=== PATIENT | male | born 1945 | race Caucasian/White ===

== ENCOUNTER 2017-12-01 11:56 | Emergency (ER) | payer MEDICARE, MEDICAID ==
[~2017-12-01] VITALS: Ht 172.7 cm; Wt 66.5 kg
[~2017-12-01 11:56] MED LIST: ASPI-1265 PO; ATOR10TA87 PO; COU1T PO; HYDR-3972 PO; LOPE-144 PO; MECL-111 PO; MECL12.5 PO; NITR0.4T SL; ONDA4TAB12 PO; TOP100T PO
[2017-12-01 12:47] LABS: BASOPHILS % (AUTO) 0.5 % (0-1); EOSINOPHILS # (AUTO) 0.1 X10'3 (0-0.9); EOSINOPHILS % (AUTO) 1.2 % (0-6); HEMATOCRIT 42.1 % (42.0-52.0); HEMOGLOBIN 14.3 g/dl (14.0-17.9); LYMPHOCYTES # (AUTO) 2.2 X10'3 (1.1-4.8); LYMPHOCYTES % (AUTO) 33.9 % (21-51); MEAN CORPUSCULAR HEMOGLOBIN 30.8 PG (27.0-31.0); MEAN CORPUSCULAR VOLUME 90.4 FL (78-98); MEAN PLATELET VOLUME 8.4 FL (7.4-10.4); MONOCYTES # (AUTO) 0.5 X10'3 (0-0.9); MONOCYTES % (AUTO) 8.2 % (2-12); NEUTROPHILS # (AUTO) 3.6 X10'3 (1.8-7.7); NEUTROPHILS % (AUTO) 56.2 % (42-75); PLATELET COUNT 218 X10'3 (140-440); RED BLOOD COUNT 4.65 X10'6 (4.70-6.10); WHITE BLOOD COUNT 6.3 X10'3 (4.5-11.0)
[2017-12-01 12:57] LABS: PARTIAL THROMBOPLASTIN TIME 27 SECONDS (22-32); PROTHROMBIN TIME 10.3 SECONDS (9.0-12.0)
[2017-12-01 13:11] LABS: ALANINE AMINOTRANSFERASE 19 U/L (12-78); ALBUMIN 3.5 G/DL (3.4-5.0); ALBUMIN/GLOBULIN RATIO 1.1 (1.1-1.5); ALKALINE PHOSPHATASE 75 IU/L (46-116); ANION GAP 11 (8-16); ASPARTATE AMINO TRANSFERASE 15 U/L (10-37); BILIRUBIN,TOTAL 0.3 MG/DL (0.1-1.0); BLOOD UREA NITROGEN 11 MG/DL (7-18); BUN/CREATININE RATIO 11.2 (5.4-32.0); CALCIUM 8.1 MG/DL (8.5-10.1); CHLORIDE 108 MMOL/L (99-107); CREATININE 0.98 MG/DL (0.60-1.10); GLUCOSE 98 MG/DL (70-104); POTASSIUM 3.7 MMOL/L (3.5-5.1); SODIUM 138 MMOL/L (135-145); TOTAL CARBON DIOXIDE 18.6 MMOL/L (24-32); TOTAL PROTEIN 6.8 G/DL (6.4-8.2); eGFR 75 ML/MIN
[2017-12-01 14:04] VITALS: BP 130/84
== END 2017-12-01 14:06 | disposition home or self-care (01) ==
LOC: ER 11:57
DX: R42 Dizziness and giddiness (principal); I48.91 Unspecified atrial fibrillation; I25.10 Atherosclerotic heart disease of native coronary artery without angina pectoris; E78.00 Pure hypercholesterolemia, unspecified; I25.2 Old myocardial infarction; G89.29 Other chronic pain; Z98.890 Other specified postprocedural states; Z79.82 Long term (current) use of aspirin; Z79.01 Long term (current) use of anticoagulants; Z79.899 Other long term (current) drug therapy; Z88.8 Allergy status to other drugs, medicaments and biological substances
CPT/HCPCS: 36415; 70450; 71045; 80053; 85025; 85610; 85730; 93005; 99285; J7030

== ENCOUNTER 2018-01-05 06:06 | Emergency (ER) | payer MEDICARE, MEDICAID ==
[~2018-01-05] VITALS: Ht 172.7 cm; Wt 72.7 kg
[2018-01-05 06:47] LABS: BASOPHILS % (AUTO) 0.7 % (0-1); EOSINOPHILS # (AUTO) 0.1 X10'3 (0-0.9); EOSINOPHILS % (AUTO) 2.2 % (0-6); HEMATOCRIT 43.3 % (42.0-52.0); HEMOGLOBIN 14.4 g/dl (14.0-17.9); LYMPHOCYTES % (AUTO) 42.7 % (21-51); MEAN CORPUSCULAR HEMOGLOBIN 30.5 PG (27.0-31.0); MEAN CORPUSCULAR HGB CONC 33.2 % (33.0-36.5); MEAN CORPUSCULAR VOLUME 91.9 FL (78-98); MEAN PLATELET VOLUME 8.8 FL (7.4-10.4); MONOCYTES # (AUTO) 0.4 X10'3 (0-0.9); MONOCYTES % (AUTO) 8.8 % (2-12); NEUTROPHILS # (AUTO) 2.1 X10'3 (1.8-7.7); NEUTROPHILS % (AUTO) 45.6 % (42-75); PLATELET COUNT 202 X10'3 (140-440); RED BLOOD COUNT 4.71 X10'6 (4.70-6.10); RED CELL DISTRIBUTION WIDTH 12.9 % (11.5-14.5); WHITE BLOOD COUNT 4.6 X10'3 (4.5-11.0)
[2018-01-05 06:55] LABS: PROTHROMBIN TIME 10.4 SECONDS (9.0-12.0)
[2018-01-05 07:00] LABS: ALBUMIN 3.4 G/DL (3.4-5.0); ANION GAP 14 (8-16); BILIRUBIN,TOTAL 0.4 MG/DL (0.1-1.0); BLOOD UREA NITROGEN 11 MG/DL (7-18); CALCIUM 8.4 MG/DL (8.5-10.1); CHLORIDE 108 MMOL/L (99-107); CREATININE 0.92 MG/DL (0.60-1.10); GLUCOSE 106 MG/DL (70-104); POTASSIUM 3.7 MMOL/L (3.5-5.1); SODIUM 139 MMOL/L (135-145); TOTAL CARBON DIOXIDE 17.5 MMOL/L (24-32); TOTAL PROTEIN 6.5 G/DL (6.4-8.2); eGFR 80 ML/MIN
[2018-01-05 07:01] LABS: ALANINE AMINOTRANSFERASE 22 U/L (12-78); ALBUMIN/GLOBULIN RATIO 1.1 (1.1-1.5); ALKALINE PHOSPHATASE 74 IU/L (46-116); ASPARTATE AMINO TRANSFERASE 15 U/L (10-37); LIPASE 74 U/L (73-393)
[2018-01-05] MEDS ORDERED: tamsulosin 0.4mg capsule PO ONE (07:20)
[2018-01-05] MEDS ORDERED: morphine 4 MG/ML inj SYRINge IV ONE (07:20)
[2018-01-05] MEDS ORDERED: normal saline 1000ML IV soln IVB ONE (07:20)
[2018-01-05 08:48] LABS: CLARITY,URINE CLEAR (Clear); COLOR,URINE YELLOW (Yellow); GLUCOSE, URINE NEGATIVE (Neg); KETONES,URINE NEGATIVE (Neg); LEUKOCYTE ESTERASE ,URINE NEGATIVE (Neg); NITRITES, URINE NEGATIVE (Neg); OCCULT BLOOD,URINE SMALL (Neg); PH,URINE 5.5 (4.8-8.0); PROTEIN,URINE NEGATIVE (Neg); UROBILINOGEN,URINE 0.2 E.U/dL (0.2-1.0)
[2018-01-05 08:49] LABS: UA COLLECTION TYPE CLN CATCH MIDSTREAM
[2018-01-05 08:53] LABS: BACTERIA,URINE NONE SEEN /HPF (Neg); SQUAMOUS EPITHELIAL CELL,UR FEW /LPF (FEW); WBC,URINE 0-4 /HPF (0-4)
[2018-01-05 08:54] LABS: MUCUS STRANDS FEW /LPF (Neg)
[2018-01-05] MEDS ORDERED: FLO0.4C PO (09:44)
[2018-01-05 10:04] VITALS: BP 132/78
[2018-01-05] MEDS ORDERED: ONDA4TAB12 PO (19:11)
== END 2018-01-05 10:05 | disposition home or self-care (01) ==
LOC: ER 06:07
DX: N20.0 Calculus of kidney (principal); R31.29 Other microscopic hematuria; R10.11 Right upper quadrant pain; I48.91 Unspecified atrial fibrillation; I25.10 Atherosclerotic heart disease of native coronary artery without angina pectoris; E78.00 Pure hypercholesterolemia, unspecified; I25.2 Old myocardial infarction; G89.29 Other chronic pain; Z86.73 Personal history of transient ischemic attack (TIA), and cerebral infarction without residual deficits; Z87.11 Personal history of peptic ulcer disease; Z98.890 Other specified postprocedural states; Z88.6 Allergy status to analgesic agent; Z79.82 Long term (current) use of aspirin; Z79.01 Long term (current) use of anticoagulants
CPT/HCPCS: 36415; 80053; 81001; 83690; 85025; 85610; 96374; 99284; A4353; J2270; J7030

== ENCOUNTER 2018-01-05 16:28 | Emergency (ER) | payer MEDICARE, MEDICAID ==
[~2018-01-05] VITALS: Ht 172.7 cm; Wt 73.3 kg
[~2018-01-05 16:28] MED LIST changes: +FLO0.4C PO
[2018-01-05 16:37] VITALS: BP 149/96
[2018-01-05] MEDS ORDERED: dexamethasone sod phosphate 10mg/ml inj PO STA (18:39)
[2018-01-05] MEDS ORDERED: aspirin 325mg tablet PO ONE (18:40)
[2018-01-05] MEDS ORDERED: ONDA4TAB12 PO (19:11)
== END 2018-01-05 19:30 | disposition home or self-care (01) ==
LOC: ER 16:28
DX: N23 Unspecified renal colic (principal); I48.91 Unspecified atrial fibrillation; I25.10 Atherosclerotic heart disease of native coronary artery without angina pectoris; E78.00 Pure hypercholesterolemia, unspecified; I25.2 Old myocardial infarction; G89.29 Other chronic pain; Z86.73 Personal history of transient ischemic attack (TIA), and cerebral infarction without residual deficits; Z98.890 Other specified postprocedural states; Z87.442 Personal history of urinary calculi; Z88.6 Allergy status to analgesic agent; Z79.82 Long term (current) use of aspirin; Z79.899 Other long term (current) drug therapy; Z79.01 Long term (current) use of anticoagulants
CPT/HCPCS: 99283; J1100

== ENCOUNTER 2018-01-30 16:02 | Emergency (ER) | payer MEDICARE, MEDICAID ==
[~2018-01-30] VITALS: Ht 172.7 cm; Wt 70.0 kg
[2018-01-30] MEDS ORDERED: meclizine 12.5mg tablet PO ONE (16:05)
[2018-01-30 16:21] LABS: BASOPHILS % (AUTO) 0.6 % (0-1); EOSINOPHILS # (AUTO) 0.1 X10'3 (0-0.9); EOSINOPHILS % (AUTO) 2.1 % (0-6); HEMATOCRIT 41.4 % (42.0-52.0); LYMPHOCYTES # (AUTO) 2.1 X10'3 (1.1-4.8); LYMPHOCYTES % (AUTO) 44.4 % (21-51); MEAN CORPUSCULAR HEMOGLOBIN 30.5 PG (27.0-31.0); MEAN CORPUSCULAR HGB CONC 33.9 % (33.0-36.5); MEAN CORPUSCULAR VOLUME 89.9 FL (78-98); MEAN PLATELET VOLUME 8.2 FL (7.4-10.4); MONOCYTES # (AUTO) 0.5 X10'3 (0-0.9); MONOCYTES % (AUTO) 10.2 % (2-12); NEUTROPHILS % (AUTO) 42.7 % (42-75); PLATELET COUNT 224 X10'3 (140-440); RED BLOOD COUNT 4.61 X10'6 (4.70-6.10); RED CELL DISTRIBUTION WIDTH 13.5 % (11.5-14.5); WHITE BLOOD COUNT 4.7 X10'3 (4.5-11.0)
[2018-01-30 16:35] LABS: ALANINE AMINOTRANSFERASE 15 U/L (12-78); ALBUMIN 3.3 G/DL (3.4-5.0); ALBUMIN/GLOBULIN RATIO 1.1 (1.1-1.5); ALKALINE PHOSPHATASE 84 IU/L (46-116); ANION GAP 11 (8-16); ASPARTATE AMINO TRANSFERASE 14 U/L (10-37); BILIRUBIN,TOTAL 0.3 MG/DL (0.1-1.0); BLOOD UREA NITROGEN 13 MG/DL (7-18); BUN/CREATININE RATIO 14.1 (5.4-32.0); CALCIUM 7.7 MG/DL (8.5-10.1); CHLORIDE 108 MMOL/L (99-107); CREATININE 0.92 MG/DL (0.60-1.10); GLUCOSE 94 MG/DL (70-104); MAGNESIUM 1.9 MG/DL (1.5-2.4); SODIUM 140 MMOL/L (135-145); TOTAL CARBON DIOXIDE 21.1 MMOL/L (24-32); TOTAL PROTEIN 6.2 G/DL (6.4-8.2); eGFR 80 ML/MIN
[2018-01-30] MEDS ORDERED: MECL-127 PO (16:51)
[2018-01-30] MEDS ORDERED: ONDA8TAB9 PO (16:51)
[2018-01-30 17:32] VITALS: BP 136/86
== END 2018-01-30 17:34 | disposition home or self-care (01) ==
LOC: ER 16:03
DX: R42 Dizziness and giddiness (principal); I48.91 Unspecified atrial fibrillation; I25.10 Atherosclerotic heart disease of native coronary artery without angina pectoris; E78.00 Pure hypercholesterolemia, unspecified; I25.2 Old myocardial infarction; G89.29 Other chronic pain; Z87.442 Personal history of urinary calculi; Z98.890 Other specified postprocedural states; Z86.73 Personal history of transient ischemic attack (TIA), and cerebral infarction without residual deficits; Z88.6 Allergy status to analgesic agent; Z79.82 Long term (current) use of aspirin; Z79.899 Other long term (current) drug therapy; Z79.01 Long term (current) use of anticoagulants
CPT/HCPCS: 36415; 71045; 80053; 83735; 85025; 93005; 99285; J8597

== ENCOUNTER 2018-12-14 20:55 | Emergency (ER) | payer MEDICARE, MEDICAID ==
[~2018-12-14] VITALS: Ht 172.7 cm; Wt 57.7 kg
[~2018-12-14 20:55] MED LIST changes: -FLO0.4C PO; +MECL-127 PO; +ONDA8TAB9 PO
--- NOTE | 2018-12-14 21:29 | NUR ---
PT STATES THE PAIN HE HAD IN HIS CHEST IS NOT REPRODUCIBLE WITH PALPATION OR DEEP INSPIRATION
[2018-12-14 21:43] LABS: BASOPHILS % (AUTO) 0.2 % (0-1); EOSINOPHILS # (AUTO) 0.1 X10'3 (0-0.9); EOSINOPHILS % (AUTO) 0.9 % (0-6); HEMATOCRIT 40.2 % (42.0-52.0); HEMOGLOBIN 13.5 g/dl (14.0-17.9); LYMPHOCYTES # (AUTO) 1.8 X10'3 (1.1-4.8); LYMPHOCYTES % (AUTO) 20.1 % (21-51); MEAN CORPUSCULAR HGB CONC 33.6 g/dL (33.0-36.5); MEAN CORPUSCULAR VOLUME 92.5 FL (78-98); MEAN PLATELET VOLUME 7.8 FL (7.4-10.4); MONOCYTES # (AUTO) 0.7 X10'3 (0-0.9); NEUTROPHILS # (AUTO) 6.2 X10'3 (1.8-7.7); NEUTROPHILS % (AUTO) 70.8 % (42-75); PLATELET COUNT 273 X10'3 (140-440); RED BLOOD COUNT 4.35 X10'6 (4.70-6.10); RED CELL DISTRIBUTION WIDTH 13.9 % (11.5-14.5); WHITE BLOOD COUNT 8.8 X10'3 (4.5-11.0)
[2018-12-14 21:58] LABS: PARTIAL THROMBOPLASTIN TIME 31 SECONDS (22-32)
[2018-12-14 22:01] LABS: ALANINE AMINOTRANSFERASE 18 U/L (12-78); ALBUMIN 3.3 G/DL (3.4-5.0); ALBUMIN/GLOBULIN RATIO 0.9 (1.1-1.5); ALKALINE PHOSPHATASE 54 IU/L (46-116); ANION GAP 9 (8-16); ASPARTATE AMINO TRANSFERASE 15 U/L (10-37); BILIRUBIN,TOTAL 0.3 MG/DL (0.1-1.0); BLOOD UREA NITROGEN 17 MG/DL (7-18); BUN/CREATININE RATIO 18.5 (5.4-32.0); CALCIUM 8.5 MG/DL (8.5-10.1); CHLORIDE 110 MMOL/L (99-107); CREATININE 0.92 MG/DL (0.60-1.10); GLUCOSE 106 MG/DL (70-104); SODIUM 143 MMOL/L (135-145); TOTAL CARBON DIOXIDE 24.3 MMOL/L (24-32); TOTAL PROTEIN 6.8 G/DL (6.4-8.2); eGFR 80 ML/MIN
[2018-12-14] MEDS ORDERED: BENZ-16 PO (22:36)
[2018-12-14] MEDS ORDERED: benzonatate 100mg capsule PO ONE (22:40)
[2018-12-14 22:56] VITALS: BP 136/74
== END 2018-12-14 22:58 | disposition home or self-care (01) ==
LOC: ER 20:55
DX: R05 Cough (principal); I48.91 Unspecified atrial fibrillation; I25.10 Atherosclerotic heart disease of native coronary artery without angina pectoris; E78.00 Pure hypercholesterolemia, unspecified; I25.2 Old myocardial infarction; G89.29 Other chronic pain; Z86.73 Personal history of transient ischemic attack (TIA), and cerebral infarction without residual deficits; Z98.890 Other specified postprocedural states; Z88.6 Allergy status to analgesic agent; Z79.82 Long term (current) use of aspirin; Z79.899 Other long term (current) drug therapy
CPT/HCPCS: 36415; 71045; 80053; 84484; 85025; 85610; 85730; 93005; 99284

== ENCOUNTER 2018-12-25 19:32 | Inpatient (IN) | payer MEDICARE, MEDICAID ==
[~2018-12-25] VITALS: Ht 170.2 cm; Wt 56.4 kg
[~2018-12-25 19:32] MED LIST changes: +BENZ-16 PO
[2018-12-25] MEDS ORDERED: ondansetron/PF 4mg/2ml inj IV ONE (20:20)
[2018-12-25] MEDS ORDERED: normal saline 1000ML IV soln IVB ONE (20:20)
[2018-12-25 20:25] LABS: BASOPHILS % (AUTO) 0.3 % (0-1); EOSINOPHILS % (AUTO) 0.1 % (0-6); HEMATOCRIT 41.8 % (42.0-52.0); LYMPHOCYTES # (AUTO) 1.1 X10'3 (1.1-4.8); MEAN CORPUSCULAR HEMOGLOBIN 31.1 PG (27.0-31.0); MEAN CORPUSCULAR HGB CONC 33.6 g/dL (33.0-36.5); MEAN CORPUSCULAR VOLUME 92.5 FL (78-98); MEAN PLATELET VOLUME 7.4 FL (7.4-10.4); MONOCYTES # (AUTO) 0.9 X10'3 (0-0.9); MONOCYTES % (AUTO) 6.2 % (2-12); NEUTROPHILS # (AUTO) 11.9 X10'3 (1.8-7.7); NEUTROPHILS % (AUTO) 85.4 % (42-75); PLATELET COUNT 319 X10'3 (140-440); RED BLOOD COUNT 4.52 X10'6 (4.70-6.10); RED CELL DISTRIBUTION WIDTH 13.8 % (11.5-14.5)
[2018-12-25 20:34] LABS: ALANINE AMINOTRANSFERASE 20 U/L (12-78); ALBUMIN 3.4 G/DL (3.4-5.0); ALBUMIN/GLOBULIN RATIO 0.9 (1.1-1.5); ALKALINE PHOSPHATASE 58 IU/L (46-116); ANION GAP 10 (8-16); ASPARTATE AMINO TRANSFERASE 12 U/L (10-37); BILIRUBIN,TOTAL 0.4 MG/DL (0.1-1.0); BLOOD UREA NITROGEN 17 MG/DL (7-18); BUN/CREATININE RATIO 17.2 (5.4-32.0); CALCIUM 8.9 MG/DL (8.5-10.1); CHLORIDE 109 MMOL/L (99-107); CREATININE 0.99 MG/DL (0.60-1.10); GLUCOSE 124 MG/DL (70-104); LIPASE 52 U/L (73-393); POTASSIUM 3.8 MMOL/L (3.5-5.1); SODIUM 142 MMOL/L (135-145); TOTAL CARBON DIOXIDE 22.9 MMOL/L (24-32); TOTAL PROTEIN 7.3 G/DL (6.4-8.2); eGFR 74 ML/MIN
[2018-12-25] MEDS ORDERED: piperacillin/tazo 3.375gm/50ml 50 ML IV ONE (21:20)
[2018-12-25 21:44] LABS: CLARITY,URINE CLEAR (Clear); COLOR,URINE YELLOW (Yellow); GLUCOSE, URINE NEGATIVE (Neg); KETONES,URINE TRACE mg/dl (Neg); LEUKOCYTE ESTERASE ,URINE NEGATIVE (Neg); NITRITES, URINE NEGATIVE (Neg); OCCULT BLOOD,URINE NEGATIVE (Neg); PH,URINE 5.5 (4.8-8.0); PROTEIN,URINE NEGATIVE (Neg); UROBILINOGEN,URINE 0.2 E.U/dL (0.2-1.0)
[2018-12-25 21:51] LABS: UA COLLECTION TYPE NON-SPECIFIED
[2018-12-25] MEDS ORDERED: BENZ-16 PO (21:51)
[2018-12-25] MEDS ORDERED: RANI300T4 PO (21:51)
[2018-12-25] MEDS ORDERED: ACET-75 PO (21:51)
[2018-12-25] MEDS ORDERED: CLOP75TA35 PO (21:51)
[2018-12-25] MEDS ORDERED: DOCU100C41 PO (21:51)
[2018-12-25] MEDS ORDERED: acetaminophen 325mg tablet PO PRN (22:45)
[2018-12-25] MEDS: normal saline 1000ml 1,000 ML IV SCH (23:10)
[2018-12-25] MEDS ORDERED: cefotetan inj 1 GM in normal saline 50ml IV soln 50 ML IV SCH (23:30)
[2018-12-25] MEDS ORDERED: ceFOXitin 1 GM/D5W 50mL IVPB 50 ML IV SCH (23:42)
[2018-12-26 00:20] VITALS: BP 142/86
--- NOTE | 2018-12-26 00:20 | NUR ---
PATIENT ADMITTED TO ROOM 4022A FROM ER FOR SWALLOW DEFICIT AND POSSIBLE CHOLECYSTITIS. PLACED COMFORTABLE IN BED. VITAL SIGNS TAKEN AND RECORDED.
[2018-12-26] MEDS: morphine 2 MG/ML inj. syringe IV PRN ×3 (04:35→17:23)
[2018-12-26 06:00] VITALS: BP 132/73
[2018-12-26 06:08] LABS: BASOPHILS % (AUTO) 0.4 % (0-1); EOSINOPHILS # (AUTO) 0.1 X10'3 (0-0.9); EOSINOPHILS % (AUTO) 1.3 % (0-6); HEMATOCRIT 38.1 % (42.0-52.0); HEMOGLOBIN 12.8 g/dl (14.0-17.9); LYMPHOCYTES % (AUTO) 23.3 % (21-51); MEAN CORPUSCULAR HEMOGLOBIN 31.4 PG (27.0-31.0); MEAN CORPUSCULAR HGB CONC 33.6 g/dL (33.0-36.5); MEAN CORPUSCULAR VOLUME 93.4 FL (78-98); MONOCYTES # (AUTO) 0.7 X10'3 (0-0.9); MONOCYTES % (AUTO) 8.2 % (2-12); NEUTROPHILS # (AUTO) 5.6 X10'3 (1.8-7.7); NEUTROPHILS % (AUTO) 66.8 % (42-75); PLATELET COUNT 281 X10'3 (140-440); RED BLOOD COUNT 4.07 X10'6 (4.70-6.10); RED CELL DISTRIBUTION WIDTH 13.6 % (11.5-14.5); WHITE BLOOD COUNT 8.4 X10'3 (4.5-11.0)
--- NOTE | 2018-12-26 06:15 | NUR ---
Patient in room [facility] 4022. I have received report from Madi CAMPBELL and had the opportunity to ask questions and assume patient care.
--- NOTE | 2018-12-26 06:30 | NUR ---
Problems reprioritized. Patient report given, questions answered & plan of care reviewed with JASON CAMPBELL.
[2018-12-26 07:09] LABS: ALANINE AMINOTRANSFERASE 17 U/L (12-78); ALBUMIN/GLOBULIN RATIO 0.9 (1.1-1.5); ALKALINE PHOSPHATASE 47 IU/L (46-116); ANION GAP 12 (8-16); ASPARTATE AMINO TRANSFERASE 13 U/L (10-37); BILIRUBIN,TOTAL 0.5 MG/DL (0.1-1.0); BLOOD UREA NITROGEN 15 MG/DL (7-18); CALCIUM 8.4 MG/DL (8.5-10.1); CHLORIDE 112 MMOL/L (99-107); CREATININE 1.07 MG/DL (0.60-1.10); GLUCOSE 90 MG/DL (70-104); POTASSIUM 3.9 MMOL/L (3.5-5.1); SODIUM 147 MMOL/L (135-145); TOTAL CARBON DIOXIDE 23.5 MMOL/L (24-32); TOTAL PROTEIN 6.4 G/DL (6.4-8.2); eGFR 67 ML/MIN
[2018-12-26] MEDS: topiramate 100mg tablet PO SCH ×2 (08:00→20:00)
[2018-12-26] MEDS: normal saline 1000ml 1,000 ML IV SCH ×2 (09:10→19:43)
[2018-12-26 10:00] VITALS: BP 136/87
--- NOTE | 2018-12-26 11:50 | NUR ---
Malnutrition consult: Pt currently documented as A/O x 3. Patient's current wt is pt stated and with limited wt hx in EMR as most documented weights are pt stated. Most recent scaled wt is 66.5 kg taken November 2017 using chair scale. Pt currently NPO d/t unable to swallow effectively and reliably. Per H&P pt with hx stroke and relied on PEG for many months following however has since returned to PO intake. Pt s/p recent swallow study in outpatient setting where a new G-tube was considered. 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 Pt with mild muscle weakness and no edema. Unable to fully assess for malnutrition at this time, will f/u tomorrow. Addendum: 12/26/18 at [address] Amended: Links added.
[2018-12-26] MEDS ORDERED: NORMAL SALINE IV PRN (11:55)
[2018-12-26] MEDS ORDERED: SINCALIDE IV PRN (11:55)
[2018-12-26] MEDS ORDERED: NORMAL SALINE IV ONE (12:23)
[2018-12-26] MEDS ORDERED: SINCALIDE IV ONE (12:23)
[2018-12-26] MEDS: ceFOXitin 1 GM/D5W 50mL IVPB 50 ML IV SCH (12:47)
[2018-12-26 18:00] VITALS: BP 119/85
--- NOTE | 2018-12-26 18:00 | NUR ---
Continued care of pt
[2018-12-26] MEDS: famotidine 20mg tablet PO SCH (20:00)
[2018-12-26] MEDS: lactobacillus rhamnosus 10,000 MMU CELLS/CAPSULE PO SCH (20:00)
[2018-12-26 22:27] VITALS: BP 145/85
--- NOTE | 2018-12-26 23:55 | NUR ---
Received report from Daly Payan RN at this time and took over care of patient.
[2018-12-27] VITALS (9 sets, daily range): BP systolic 110–162; BP diastolic 75–94
--- NOTE | 2018-12-27 | NUR ---
Problems reprioritized. Patient report given, questions answered & plan of care reviewed with Soraya CAMPBELL.
[2018-12-27] MEDS: ceFOXitin 1 GM/D5W 50mL IVPB 50 ML IV SCH ×2 (00:03→14:30)
--- NOTE | 2018-12-27 00:20 | NUR ---
Agree with [employer] professor; I did notice that most of his abdominal pain on palpation is in the middle of the abdomen. Also the chest when assessing has loud lung sounds not wheeze or rhonchi but increased aeration.
--- NOTE | 2018-12-27 06:00 | NUR ---
Problems reprioritized. Patient report given, questions answered & plan of care reviewed with Yaneli CAMPBELL. Addendum: 12/27/18 at 0601 by Soraya Pedro RN Problems reprioritized. Patient report given, questions answered & plan of care reviewed with Lina CAMPBELL.
[2018-12-27 06:27] LABS: BASOPHILS % (AUTO) 0.4 % (0-1); EOSINOPHILS # (AUTO) 0.1 X10'3 (0-0.9); HEMATOCRIT 36.5 % (42.0-52.0); HEMOGLOBIN 12.5 g/dl (14.0-17.9); LYMPHOCYTES # (AUTO) 1.6 X10'3 (1.1-4.8); LYMPHOCYTES % (AUTO) 21.5 % (21-51); MEAN CORPUSCULAR HEMOGLOBIN 31.6 PG (27.0-31.0); MEAN CORPUSCULAR HGB CONC 34.3 g/dL (33.0-36.5); MEAN CORPUSCULAR VOLUME 92.3 FL (78-98); MEAN PLATELET VOLUME 7.4 FL (7.4-10.4); MONOCYTES # (AUTO) 0.5 X10'3 (0-0.9); MONOCYTES % (AUTO) 6.5 % (2-12); NEUTROPHILS % (AUTO) 69.6 % (42-75); PLATELET COUNT 268 X10'3 (140-440); RED BLOOD COUNT 3.96 X10'6 (4.70-6.10); RED CELL DISTRIBUTION WIDTH 13.6 % (11.5-14.5); WHITE BLOOD COUNT 7.2 X10'3 (4.5-11.0)
[2018-12-27 06:50] LABS: % IRON SATURATION 17 % (11-46); IRON 32 UG/DL (53-167); TOTAL IRON BINDING CAPACITY 188 UG/DL (259-388)
[2018-12-27 06:59] LABS: ALANINE AMINOTRANSFERASE 15 U/L (12-78); ALBUMIN 2.6 G/DL (3.4-5.0); ALBUMIN/GLOBULIN RATIO 0.8 (1.1-1.5); ALKALINE PHOSPHATASE 48 IU/L (46-116); ANION GAP 14 (8-16); ASPARTATE AMINO TRANSFERASE 16 U/L (10-37); BILIRUBIN,TOTAL 0.4 MG/DL (0.1-1.0); BLOOD UREA NITROGEN 12 MG/DL (7-18); BUN/CREATININE RATIO 12.9 (5.4-32.0); CALCIUM 7.9 MG/DL (8.5-10.1); CHLORIDE 113 MMOL/L (99-107); CREATININE 0.93 MG/DL (0.60-1.10); GLUCOSE 67 MG/DL (70-104); SODIUM 145 MMOL/L (135-145); TOTAL CARBON DIOXIDE 18.3 MMOL/L (24-32); eGFR 79 ML/MIN
[2018-12-27] MEDS: normal saline 1000ml 1,000 ML IV SCH ×3 (07:24→19:42)
[2018-12-27] MEDS: topiramate 100mg tablet PO SCH ×2 (08:00→20:00)
[2018-12-27] MEDS: famotidine 20mg tablet PO SCH ×2 (08:00→20:00)
[2018-12-27] MEDS: lactobacillus rhamnosus 10,000 MMU CELLS/CAPSULE PO SCH ×2 (08:00→20:00)
[2018-12-27 09:32] LABS: H PYLORI ANTIBODY POSITIVE (Neg)
[2018-12-27 09:44] LABS: HIV ANTIBODY 1&2 RAPID NON-REACTIVE (Neg)
[2018-12-27] MEDS ORDERED: MIDAZolam 5mg/5ml vial ONE (11:46)
[2018-12-27] MEDS ORDERED: fentaNYL/PF 50MCG/1 ML 2ML syringe ONE (11:46)
[2018-12-27] MEDS ORDERED: LIDOcaine Viscous 15ml cup ONE (11:46)
--- NOTE | 2018-12-27 12:23 | NUR ---
F/u: Pt still lacks significant malnutrition criteria this admit. Positive for H. pylori and remains NPO but no scaled wt yet and all prior recent weights pt stated. NEREIDA rec BSS per MD approval given dysphagia and PEG hx. Will continue to monitor for additional criteria this admit. Addendum: 12/27/18 at [address] Amended: Links added.
--- NOTE | 2018-12-27 14:17 | NUR ---
Nutrition consult: Pt still lacks significant malnutrition criteria this admit. Positive for H. pylori and remains NPO but no scaled wt yet and all prior recent weights pt stated. NEREIDA rec BSS per MD approval given dysphagia and PEG hx. Will continue to monitor for additional criteria this admit. Addendum: 12/27/18 at [address] Amended: Links added.
--- NOTE | 2018-12-27 18:39 | NUR ---
Patient in room [facility]TH[facility] 4022. I have received report from ADRIAN Lopez and had the opportunity to ask questions and assume patient care. Addendum: 12/27/18 at 1840 by Sarah Barrientos RN Amended: Links added.
[2018-12-27] MEDS: morphine 2 MG/ML inj. syringe IV PRN (19:41)
[2018-12-27] MEDS: ESOMEPRAZOLE 40 MG VIAL IV SCH (19:41)
[2018-12-27] MEDS: ondansetron/PF 4mg/2ml inj IV PRN (19:47)
[2018-12-27] MEDS ORDERED: pantoprazole 40mg Tablet.DR PO SCH (20:00)
[2018-12-27] MEDS: diatr meglu/diatrizoate 30ml oral sol.-(3 dose) bottle PO SCH (21:58)
--- NOTE | 2018-12-28 06:11 | NUR ---
Problems reprioritized. Patient report given, questions answered & plan of care reviewed with ADRIAN Lopez. Addendum: 12/28/18 at 0612 by Sarah Barrientos RN Amended: Links added.
[2018-12-28 06:33] VITALS: BP 128/80
[2018-12-28 06:55] LABS: BASOPHILS % (AUTO) 0.3 % (0-1); EOSINOPHILS % (AUTO) 0.3 % (0-6); HEMATOCRIT 36.3 % (42.0-52.0); HEMOGLOBIN 12.1 g/dl (14.0-17.9); LYMPHOCYTES # (AUTO) 1.5 X10'3 (1.1-4.8); LYMPHOCYTES % (AUTO) 12.2 % (21-51); MEAN CORPUSCULAR HEMOGLOBIN 30.9 PG (27.0-31.0); MEAN CORPUSCULAR HGB CONC 33.3 g/dL (33.0-36.5); MEAN CORPUSCULAR VOLUME 92.8 FL (78-98); MEAN PLATELET VOLUME 7.6 FL (7.4-10.4); MONOCYTES # (AUTO) 0.7 X10'3 (0-0.9); MONOCYTES % (AUTO) 5.9 % (2-12); NEUTROPHILS % (AUTO) 81.3 % (42-75); PLATELET COUNT 264 X10'3 (140-440); RED BLOOD COUNT 3.91 X10'6 (4.70-6.10); RED CELL DISTRIBUTION WIDTH 13.7 % (11.5-14.5); WHITE BLOOD COUNT 12.3 X10'3 (4.5-11.0)
[2018-12-28 07:07] LABS: ALANINE AMINOTRANSFERASE 13 U/L (12-78); ALBUMIN 2.4 G/DL (3.4-5.0); ALBUMIN/GLOBULIN RATIO 0.8 (1.1-1.5); ALKALINE PHOSPHATASE 48 IU/L (46-116); ANION GAP 14 (8-16); ASPARTATE AMINO TRANSFERASE 15 U/L (10-37); BILIRUBIN,TOTAL 0.4 MG/DL (0.1-1.0); BLOOD UREA NITROGEN 11 MG/DL (7-18); BUN/CREATININE RATIO 13.4 (5.4-32.0); CALCIUM 7.7 MG/DL (8.5-10.1); CHLORIDE 113 MMOL/L (99-107); CREATININE 0.82 MG/DL (0.60-1.10); GLUCOSE 64 MG/DL (70-104); POTASSIUM 3.9 MMOL/L (3.5-5.1); SODIUM 145 MMOL/L (135-145); TOTAL CARBON DIOXIDE 18.1 MMOL/L (24-32); TOTAL PROTEIN 5.5 G/DL (6.4-8.2); eGFR > 90 ML/MIN
[2018-12-28] MEDS: diatr meglu/diatrizoate 30ml oral sol.-(3 dose) bottle PO SCH (07:36)
[2018-12-28] MEDS: famotidine 20mg tablet PO SCH ×2 (07:39→21:33)
[2018-12-28] MEDS: ESOMEPRAZOLE 40 MG VIAL IV SCH (07:39)
[2018-12-28] MEDS: lactobacillus rhamnosus 10,000 MMU CELLS/CAPSULE PO SCH ×2 (07:39→21:34)
[2018-12-28] MEDS: topiramate 100mg tablet PO SCH ×2 (07:40→21:34)
[2018-12-28] MEDS ORDERED: iohexol 300mg/ml 100ml inj. ONE (10:25)
[2018-12-28 10:34] VITALS: BP 126/79
[2018-12-28] MEDS: normal saline 1000ml 1,000 ML IV SCH ×2 (10:43→22:54)
--- NOTE | 2018-12-28 16:22 | NUR ---
F/u: Pt remains NPO day 2 since admit. Pt NPO for abdomen/chest CT showing unremarkable esophagus w/ possible PNA. DAM ATTENDANT BSS postponed given NPO for CT may not be until tomorrow. Pt/SO seen by NEREIDA and report wt loss past 3 months r/t inability to tolerate PO foods though strong appetite at baseline. SO reports UBW 165#; currently 124# though pt stated and not scale wt. IF pt stated wt accurate then significant severe wt loss 25% 3 months. In addition, pt has visible temporal wasting w/ at minimum mild muscle and fat wasting present as well. Given above criteria in addition to mild weakness pt qualifies for severe malnutrition at this time; MD notified. Pt not appropriate for malnutrition ed at this time given NPO status. Will monitor for DAM ATTENDANT BSS recs and alternative nutrition needs; pt is aware of alternative nutrition pathways since pt hx prior PEG. LBM 12/25. Will continue to monitor. Rec: 1. advance diet per DAM ATTENDANT recs to heart healthy 2. monitor for ONS needs once PO 3. IF DAM ATTENDANT recs NPO; monitor for alternative nutrition needs 4. weekly wts Addendum: 12/28/18 at [address] Amended: Links added.
[2018-12-28] MEDS ORDERED: levoFLOXACIN-Levaquin 750MG/D5 150 ML IV STA (16:23)
[2018-12-28 18:00] VITALS: BP 140/84
--- NOTE | 2018-12-28 18:30 | NUR ---
Patient in room [facility]TH[facility] 4022. I have received report from ADRIAN JONES and had the opportunity to ask questions and assume patient care.
[2018-12-28] MEDS: sucralfate 1gm/10ml UD suspension PO SCH (21:31)
[2018-12-28] MEDS: amoxicillin 250mg capsule PO SCH (21:34)
[2018-12-28] MEDS: pantoprazole 40mg Tablet.DR PO SCH (21:35)
[2018-12-28 22:00] VITALS: BP 148/93
[2018-12-29 05:00] VITALS: BP 159/98
[2018-12-29 06:15] LABS: BASOPHILS % (AUTO) 0.2 % (0-1); EOSINOPHILS # (AUTO) 0.1 X10'3 (0-0.9); EOSINOPHILS % (AUTO) 1.4 % (0-6); HEMATOCRIT 36.5 % (42.0-52.0); HEMOGLOBIN 12.3 g/dl (14.0-17.9); LYMPHOCYTES # (AUTO) 1.2 X10'3 (1.1-4.8); LYMPHOCYTES % (AUTO) 13.7 % (21-51); MEAN CORPUSCULAR HEMOGLOBIN 31.1 PG (27.0-31.0); MEAN CORPUSCULAR HGB CONC 33.8 g/dL (33.0-36.5); MEAN PLATELET VOLUME 7.8 FL (7.4-10.4); MONOCYTES # (AUTO) 0.7 X10'3 (0-0.9); MONOCYTES % (AUTO) 8.1 % (2-12); NEUTROPHILS # (AUTO) 6.9 X10'3 (1.8-7.7); NEUTROPHILS % (AUTO) 76.6 % (42-75); PLATELET COUNT 258 X10'3 (140-440); RED BLOOD COUNT 3.96 X10'6 (4.70-6.10); RED CELL DISTRIBUTION WIDTH 13.9 % (11.5-14.5)
[2018-12-29 06:24] LABS: HBSAG SCREEN Negative (Negative); HEP A AB, IGM Negative (Negative); HEP B CORE AB, IGM Negative (Negative); HEPATITIS C ANTIBODY <0.1 s/co ratio (0.0-0.9)
[2018-12-29 06:29] LABS: ALANINE AMINOTRANSFERASE 14 U/L (12-78); ALBUMIN 2.3 G/DL (3.4-5.0); ALBUMIN/GLOBULIN RATIO 0.7 (1.1-1.5); ALKALINE PHOSPHATASE 45 IU/L (46-116); ANION GAP 11 (8-16); ASPARTATE AMINO TRANSFERASE 16 U/L (10-37); BILIRUBIN,TOTAL 0.4 MG/DL (0.1-1.0); BLOOD UREA NITROGEN 9 MG/DL (7-18); BUN/CREATININE RATIO 12.3 (5.4-32.0); CALCIUM 7.8 MG/DL (8.5-10.1); CHLORIDE 111 MMOL/L (99-107); CREATININE 0.73 MG/DL (0.60-1.10); GLUCOSE 92 MG/DL (70-104); POTASSIUM 4.1 MMOL/L (3.5-5.1); SODIUM 143 MMOL/L (135-145); TOTAL CARBON DIOXIDE 21.4 MMOL/L (24-32); TOTAL PROTEIN 5.5 G/DL (6.4-8.2); eGFR > 90 ML/MIN
--- NOTE | 2018-12-29 06:30 | NUR ---
Patient in room [facility]TH[facility] 4022. I have received report from ADRIAN Henderson and had the opportunity to ask questions and assume patient care.
[2018-12-29] MEDS: amoxicillin 250mg capsule PO SCH ×2 (08:00→20:00)
[2018-12-29] MEDS: lactobacillus rhamnosus 10,000 MMU CELLS/CAPSULE PO SCH ×2 (08:00→20:00)
[2018-12-29] MEDS: pantoprazole 40mg Tablet.DR PO SCH ×2 (08:00→20:00)
[2018-12-29] MEDS: famotidine 20mg tablet PO SCH ×2 (08:00→20:00)
[2018-12-29] MEDS: topiramate 100mg tablet PO SCH ×2 (08:00→20:00)
[2018-12-29] MEDS: levoFLOXACIN-Levaquin 750MG/D5 150 ML IV SCH (08:33)
[2018-12-29] MEDS: sucralfate 1gm/10ml UD suspension PO SCH ×4 (08:58→21:00)
[2018-12-29 10:00] VITALS: BP 167/95
[2018-12-29] MEDS: normal saline 1000ml 1,000 ML IV SCH (13:18)
--- NOTE | 2018-12-29 14:29 | NUR ---
Shahzad 12; skin intact. Addendum: 12/29/18 at [address] Amended: Links added.
--- NOTE | 2018-12-29 17:50 | NUR ---
SBP slightly elevated. other VS normal. Pt denies pain. safety maintained. Up to chair for several hours this AM. Pt failed swallow study this AM. Kept NPO. Corpak placed per Dr. Dobbins this afternoon. 1st KUB stated tube needed to be advanced. Advanced Corpak and 2nd KUB done. Awaiting results. Liaison Planner consulted for tube feeds.
[2018-12-29 18:00] VITALS: BP 170/102
--- NOTE | 2018-12-29 18:40 | NUR ---
Problems reprioritized. Patient report given, questions answered & plan of care reviewed with ADRIAN Bush.
[2018-12-29] MEDS: ondansetron/PF 4mg/2ml inj IV PRN (19:17)
[2018-12-29] MEDS: morphine 2 MG/ML inj. syringe IV PRN (19:21)
[2018-12-29 22:00] VITALS: BP 169/100
[2018-12-30] VITALS (9 sets, daily range): BP systolic 138–167; BP diastolic 87–109
[2018-12-30 06:39] LABS: ALANINE AMINOTRANSFERASE 14 U/L (12-78); ALBUMIN 2.7 G/DL (3.4-5.0); ALBUMIN/GLOBULIN RATIO 0.7 (1.1-1.5); ALKALINE PHOSPHATASE 55 IU/L (46-116); ANION GAP 17 (8-16); ASPARTATE AMINO TRANSFERASE 20 U/L (10-37); BILIRUBIN,TOTAL 0.5 MG/DL (0.1-1.0); BLOOD UREA NITROGEN 5 MG/DL (7-18); BUN/CREATININE RATIO 8.6 (5.4-32.0); CALCIUM 8.3 MG/DL (8.5-10.1); CHLORIDE 107 MMOL/L (99-107); CREATININE 0.58 MG/DL (0.60-1.10); GLUCOSE 94 MG/DL (70-104); POTASSIUM 3.8 MMOL/L (3.5-5.1); SODIUM 142 MMOL/L (135-145); TOTAL CARBON DIOXIDE 18.2 MMOL/L (24-32); TOTAL PROTEIN 6.4 G/DL (6.4-8.2); eGFR > 90 ML/MIN
[2018-12-30 06:41] LABS: HEMATOCRIT 39.4 % (42.0-52.0); HEMOGLOBIN 13.4 g/dl (14.0-17.9); MONOCYTES # (AUTO) 0.6 X10'3 (0-0.9); NEUTROPHILS # (AUTO) 8.4 X10'3 (1.8-7.7); RED BLOOD COUNT 4.33 X10'6 (4.70-6.10)
[2018-12-30 06:42] LABS: BASOPHILS % (AUTO) 0.2 % (0-1); EOSINOPHILS % (AUTO) 0.4 % (0-6); LYMPHOCYTES # (AUTO) 1.4 X10'3 (1.1-4.8); LYMPHOCYTES % (AUTO) 13.4 % (21-51); MEAN CORPUSCULAR HEMOGLOBIN 30.8 PG (27.0-31.0); MEAN CORPUSCULAR HGB CONC 33.8 g/dL (33.0-36.5); MEAN CORPUSCULAR VOLUME 91.1 FL (78-98); MEAN PLATELET VOLUME 8.3 FL (7.4-10.4); MONOCYTES % (AUTO) 6.1 % (2-12); NEUTROPHILS % (AUTO) 79.9 % (42-75); PLATELET COUNT 285 X10'3 (140-440); RED CELL DISTRIBUTION WIDTH 13.5 % (11.5-14.5); WHITE BLOOD COUNT 10.5 X10'3 (4.5-11.0)
--- NOTE | 2018-12-30 06:44 | NUR ---
Problems reprioritized. Patient report given, questions answered & plan of care reviewed with ADRIAN CASTLE.
--- NOTE | 2018-12-30 06:47 | NUR ---
Patient in room [facility]TH[facility] 4022. I have received report from ADRIAN MACK and had the opportunity to ask questions and assume patient care.
[2018-12-30] MEDS: sucralfate 1gm/10ml UD suspension PO SCH ×3 (07:00→15:27)
[2018-12-30] MEDS: amoxicillin 250mg capsule PO SCH (07:22)
[2018-12-30] MEDS: famotidine 20mg tablet PO SCH (07:22)
[2018-12-30] MEDS: topiramate 100mg tablet PO SCH (07:22)
[2018-12-30] MEDS: pantoprazole 40mg Tablet.DR PO SCH (07:22)
[2018-12-30] MEDS: lactobacillus rhamnosus 10,000 MMU CELLS/CAPSULE PO SCH (07:22)
[2018-12-30] MEDS: levoFLOXACIN-Levaquin 750MG/D5 150 ML IV SCH (07:27)
[2018-12-30] MEDS: normal saline 1000ml 1,000 ML IV SCH (07:27)
[2018-12-30] MEDS: ondansetron/PF 4mg/2ml inj IV PRN ×2 (07:36→13:22)
--- NOTE | 2018-12-30 10:48 | NUR ---
TF Consult: Pt R NG placed currently clamped and NPO to OR today for new PEG placement. Pt hx prior PEG. LBM 12/28. Will monitor for TF initiation pending GI MD approval post-op. Recs below for current continuous and home bolus needs. Pt home bolus recs placed in chart. Rec: 1. PEG feeds per MD; to start pending GI MD approval. Recommend continuous PEG feeds using Jevity 1.2 at 60ml/hr goal. Initiate at 20ml/hr and advance 20ml Q8 as tolerated. 2. To provide 1440ml fluid, 1728kcals, 1166ml free water, and 80g protein. 3. Prealbumin Q M/Th, daily wts 4. monitor need for additional bowel longterm PEG BOLUS RECS 1. Home PEG bolus feeds using Jevity 1.5 or equivalent QID to start at 120ml/bolus and advance 60ml per bolus to goal 300ml bolus QID. 2. water flush 70ml before and after feeds 3. additional 500ml free water daily 4. TF regimen to be adjusted by outpatient RD given pt kcal, protein, and hydration needs Addendum: 12/30/18 at [address] Amended: Links added. Addendum: 12/30/18 at [address] Rec: 1. PEG feeds per MD; to start pending GI MD approval. Recommend continuous PEG feeds using Jevity 1.2 at 60ml/hr goal. Initiate at 20ml/hr and advance 20ml Q8 as tolerated. 2. To provide 1440ml fluid, 1728kcals, 1166ml free water, and 80g protein. 3. water flush 200ml Q4 4. Prealbumin Q M/Th, daily wts 5. monitor need for additional bowel care
[2018-12-30] MEDS ORDERED: famotidine/PF 10 mg/ml inj IV SCH (12:25)
[2018-12-30] MEDS ORDERED: pantoprazole 40 MG vial IV SCH (15:40)
[2018-12-30] MEDS ORDERED: metoclopramide 5 mg/ml inj IV PRN (15:40)
--- NOTE | 2018-12-30 16:49 | NUR ---
Tyreeak not in use. Tube feeding not started. Patient NPO and awaiting PEG tube placement by Dr. Chakraborty today.
[2018-12-30] MEDS ORDERED: fentaNYL/PF 50MCG/1 ML 2ML syringe ONE (18:16)
[2018-12-30] MEDS ORDERED: MIDAZolam 5mg/5ml vial ONE (18:16)
[2018-12-30] MEDS ORDERED: LIDOcaine Viscous 15ml cup ONE (18:17)
--- NOTE | 2018-12-30 18:19 | NUR ---
Problems reprioritized. Patient report given, questions answered & plan of care reviewed with ADRIAN UNDERWOOD.
[2018-12-30] MEDS: pantoprazole 40 MG vial IV SCH (18:52)
[2018-12-30] MEDS ORDERED: carvedilol 6.25mg tablet PO SCH (20:00)
--- NOTE | 2018-12-30 21:59 | NUR ---
PATIENT BROUGHT BACK TO ROOM AND REPORT RECEIVED AT BEDSIDE. PATIENT VERY SLEEPY. ORDERS TO GIVE MEDS VIA G TUBE, BUT WAIT FOR FEEDING UNTIL AM.
[2018-12-30] MEDS ORDERED: amoxicillin 250MG/5ML oral suspension 80ML NG SCH (22:09)
[2018-12-30] MEDS: morphine 2 MG/ML inj. syringe IV PRN (23:53)
[2018-12-31] MEDS ORDERED: amoxicillin 250MG/5ML oral suspension 80ML NG SCH (04:50)
--- NOTE | 2018-12-31 06:29 | NUR ---
Problems reprioritized. Patient report given, questions answered & plan of care reviewed with ADRIAN Santana.
--- NOTE | 2018-12-31 06:51 | NUR ---
Patient in room [facility]TH[facility] 4022. I have received report from Kathrine Baig RN and had the opportunity to ask questions and assume patient care.
[2018-12-31] MEDS: sucralfate 1gm/10ml UD suspension NG SCH ×4 (07:17→20:57)
[2018-12-31] MEDS: levoFLOXACIN-Levaquin 750MG/D5 150 ML IV SCH (07:17)
[2018-12-31] MEDS: lactobacillus rhamnosus 10,000 MMU CELLS/CAPSULE NG SCH ×2 (07:26→20:57)
[2018-12-31] MEDS: carvedilol 6.25mg tablet NG SCH ×2 (07:27→20:57)
[2018-12-31] MEDS: topiramate 100mg tablet NG SCH ×2 (07:27→20:58)
[2018-12-31] MEDS: pantoprazole 40 MG vial IV SCH (07:31)
[2018-12-31 09:39] VITALS: BP_SYST 128; BP_DIAS 81; BP_DIAS 84
--- NOTE | 2018-12-31 13:58 | NUR ---
unable to get patients weight at this time Addendum: 12/31/18 at 1359 by Max Santoyo RN Amended: Links added.
[2018-12-31] MEDS: ondansetron/PF 4mg/2ml inj IV PRN (15:47)
--- NOTE | 2018-12-31 17:40 | NUR ---
paged hospitalist [phone] to see if an order could be put in for fluids, there was an order for NS at 70 but was d/c, will continue to monitor
[2018-12-31 18:00] VITALS: BP 165/100
--- NOTE | 2018-12-31 18:09 | NUR ---
Problems reprioritized. Patient report given, questions answered & plan of care reviewed with Kathrine Baig RN.
[2018-12-31] MEDS ORDERED: ipratropium/albuterol 3ml nebule NEB PRN (19:00)
--- NOTE | 2018-12-31 19:00 | NUR ---
Patient unable to cough up wet mucus in airway. Family concerned about rattle. Called MD. New order for respiratory tx with nebs and deep suction. sats are still in high 90s on RA.
[2018-12-31] MEDS: amoxicillin 250MG/5ML oral suspension 80ML OGT SCH (20:57)
[2018-12-31] MEDS: ESOMEPRAZOLE 40 MG VIAL IV SCH (20:57)
[2018-12-31 22:00] VITALS: BP 135/78
--- NOTE | 2018-12-31 22:00 | NUR ---
patient sats in the 80s on RA. Placed him on O2 via NC. Sats did not increase into the 90s until 5 LPM. Notified RT. He came up and assessed patient and had him cough. Patient is too weak to give a good cough. RT stated to keep him on O2 and if it does not get better, he may have to be placed on BiPap.
[2019-01-01 06:00] VITALS: BP 143/90
--- NOTE | 2019-01-01 06:30 | NUR ---
Patient in room [facility]TH[facility] 4022. I have received report from Kathrine Gamboa RN and had the opportunity to ask questions and assume patient care.
--- NOTE | 2019-01-01 06:36 | NUR ---
Problems reprioritized. Patient report given, questions answered & plan of care reviewed with ADRIAN Kauffman.
[2019-01-01] MEDS: levoFLOXACIN-Levaquin 500mg/D5 100 ML IV SCH (08:05)
[2019-01-01] MEDS: amoxicillin 250MG/5ML oral suspension 80ML OGT SCH ×2 (08:06→20:07)
[2019-01-01] MEDS: lactobacillus rhamnosus 10,000 MMU CELLS/CAPSULE NG SCH ×2 (08:06→20:06)
[2019-01-01] MEDS: ESOMEPRAZOLE 40 MG VIAL IV SCH ×2 (08:06→20:06)
[2019-01-01] MEDS: sucralfate 1gm/10ml UD suspension NG SCH ×4 (08:06→20:06)
[2019-01-01] MEDS: carvedilol 6.25mg tablet NG SCH ×2 (08:07→20:06)
[2019-01-01] MEDS: topiramate 100mg tablet NG SCH ×2 (08:07→20:06)
[2019-01-01 10:00] VITALS: BP 117/77
--- NOTE | 2019-01-01 10:03 | NUR ---
Reassessment: Pt s/p HIDA which was negative and EGD which showed esophagitis and gastritis which was biopsied per MD notes. TF via PEG was started, currently running at 40 mL/hr working towards goal. Pt tolerating with low GRV 0-5 mL. LBM 12/28. Pt with Reglan PRN just given 12/30. Will continue to follow. Rec: 1. Continuous PEG feeds using Jevity 1.2 at 60ml/hr goal. Initiate at 20ml/hr and advance 20ml Q8 as tolerated. Once at goal to provide 1440ml fluid, 1728kcals, 1166ml free water, and 80g protein. 2. water flush 200ml Q4 3. Prealbumin Q /, daily wts 4. monitor need for additional bowel snf PEG BOLUS RECS 1. Home PEG bolus feeds using Jevity 1.5 or equivalent QID to start at 120ml/bolus and advance 60ml per bolus to goal 300ml bolus QID. 2. water flush 70ml before and after feeds 3. additional 500ml free water daily 4. TF regimen to be adjusted by outpatient RD given pt kcal, protein, and hydration needs Addendum: 01/01/19 at [address] Amended: Links added.
--- NOTE | 2019-01-01 12:29 | NUR ---
RECOMMEND: 1. Daily bathing with no rinse skin cleanser. 2. Cream/Lotion to be applied to skin after bathing. 3. Jerrica care Q shift and prn soiling followed by with Barrier Cream. 4. Turn patient Q 1-2 hrs and reposition with pillows. 5. Float heels to offload pressure. Addendum: 01/01/19 at 1230 by Jayesh Woodward RN Amended: Links added.
--- NOTE | 2019-01-01 12:30 | NUR ---
PRESSURE ULCER EDUCATION: DEFINITION: A pressure ulcer is an area of skin that breaks down when you stay in one position too long. The constant pressure against the skin reduces the blood flow to that area and the affected tissue dies. CAUSES: "Being bedridden or in a wheelchair "Fragile skin "Having a chronic condition, such as diabetes or vascular disease "Inability to move certain parts of your body without assistance "Older age "Incontinence of urine or stool SYMPTOMS: "A reddened area that DOES NOT turn white when pressed on - this can be the beginning of a pressure ulcer "A blister, deep sore or a crater - these can be advanced pressure ulcers FIRST AID: "Relieve the pressure on this area "Keep the area clean and dry "Call your primary doctor if you see any of the above symptoms "DO NOT massage the area "DO NOT use a donut shaped or ring shaped pillow- these actually interfere with the blood flow and cause complications PREVENTION: "Check for pressure ulcers everyday "Change position at least every two hours to relieve pressure "Use items that help relieve pressure- pillows, sheepskin, foam padding, and powders. "Keep skin clean and dry "Eat healthy well balanced meals "Exercise daily IF YOU SEE ANY OF THESE SYMPTOMS WHILE IN THE HOSPITAL - TELL YOUR NURSE IMMEDIATELY. IF YOU SEE ANY OF THESE SYMPTOMS WHILE AT HOME OR HAVE ANY QUESTIONS OR CONCERNS ABOUT PRESSURE ULCERS - CALL YOUR PRIMARY DOCTOR IMMEDIATELY. Addendum: 01/01/19 at 1230 by Jayesh Woodward RN Amended: Links added.
[2019-01-01 18:00] VITALS: BP 131/87
--- NOTE | 2019-01-01 18:24 | NUR ---
Problems reprioritized. Patient report given, questions answered & plan of care reviewed with Kathrine Gamboa RN.
[2019-01-01 22:00] VITALS: BP 133/81
[2019-01-02 06:00] VITALS: BP 136/84
--- NOTE | 2019-01-02 06:11 | NUR ---
Problems reprioritized. Patient report given, questions answered & plan of care reviewed with ADRIAN Santana
--- NOTE | 2019-01-02 06:48 | NUR ---
Patient in room [facility]TH[facility] 4022. I have received report from Kathrine Baig RN and had the opportunity to ask questions and assume patient care.
[2019-01-02] MEDS: levoFLOXACIN-Levaquin 500mg/D5 100 ML IV SCH (07:28)
[2019-01-02] MEDS: sucralfate 1gm/10ml UD suspension NG SCH ×2 (07:28→11:19)
[2019-01-02] MEDS: amoxicillin 250MG/5ML oral suspension 80ML OGT SCH (07:28)
[2019-01-02] MEDS: carvedilol 6.25mg tablet NG SCH (07:29)
[2019-01-02] MEDS: lactobacillus rhamnosus 10,000 MMU CELLS/CAPSULE NG SCH (07:29)
[2019-01-02] MEDS: topiramate 100mg tablet NG SCH (07:29)
[2019-01-02] MEDS: ESOMEPRAZOLE 40 MG VIAL IV SCH (07:29)
[2019-01-02 10:00] VITALS: BP 121/76
--- NOTE | 2019-01-02 12:03 | NUR ---
Report given to CARLOS GONZALEZ LVN At [facility]
--- NOTE | 2019-01-02 12:30 | NUR ---
Patient discharged to [facility] via medical transport, patient stable upon discharge, all belongings sent with patient along with extra tube feeding bottle. was at bed side and was aware of transfer.
== END 2019-01-02 12:30 | DRG 177 ==
LOC: ER 19:33 → ORTHO 4S 12-26 00:04 → CMPBEDREQ 12-28 21:12
PROVIDERS: ADMIT Internal Medicine; ATTEND Family Medicine
PROC: 0DB68ZX Excision of Stomach, Via Natural or Artificial Opening Endoscopic, Diagnostic (ICD-10-PCS; 2018-12-27)
PROC: 0DB48ZX Excision of Esophagogastric Junction, Via Natural or Artificial Opening Endoscopic, Diagnostic (ICD-10-PCS; 2018-12-27)
PROC: 0DH63UZ Insertion of Feeding Device into Stomach, Percutaneous Approach (ICD-10-PCS; principal; 2018-12-30)
DX: J69.0 Pneumonitis due to inhalation of food and vomit (principal); E43 Unspecified severe protein-calorie malnutrition; Z68.1 Body mass index [BMI] 19.9 or less, adult; A04.8 Other specified bacterial intestinal infections; R13.12 Dysphagia, oropharyngeal phase; E78.00 Pure hypercholesterolemia, unspecified; G40.909 Epilepsy, unspecified, not intractable, without status epilepticus; K55.20 Angiodysplasia of colon without hemorrhage; I25.10 Atherosclerotic heart disease of native coronary artery without angina pectoris; I48.0 Paroxysmal atrial fibrillation; K29.70 Gastritis, unspecified, without bleeding; G89.29 Other chronic pain; K82.8 Other specified diseases of gallbladder; K20.9 Esophagitis, unspecified; Z86.73 Personal history of transient ischemic attack (TIA), and cerebral infarction without residual deficits; Z82.49 Family history of ischemic heart disease and other diseases of the circulatory system; Z88.6 Allergy status to analgesic agent; I25.2 Old myocardial infarction; Z79.01 Long term (current) use of anticoagulants; Z87.442 Personal history of urinary calculi; Z79.82 Long term (current) use of aspirin
CPT/HCPCS: 36415; 43235; 43239; 43246; 71045; 71260; 74018; 74176; 74177; 76700; 78227; 80053; 80074; 81003; 83540; 83550; 83690; 84134; 84439; 84443; 85025; 86677; 86703; 87081; 88305; 88342; 92508; 92616; 94667; 94668; 94760; 96361; 96365; 96366; 96375; 97110; 97116; 97161; 97530; 99152; 99153; 99285; A4620; A9537; B4087; C9113; G0378; J0694; J1956; J2250; J2270; J2405; J2543; J2765; J2805; J3010; J7030; J7040; Q9963; Q9967

== ENCOUNTER 2019-01-05 10:45 | Inpatient (IN) | payer MEDICARE, MEDICAID ==
[~2019-01-05] VITALS: Ht 172.7 cm; Wt 70.5 kg
[~2019-01-05 10:45] MED LIST changes: +ACET-75 PO; +CLOP75TA35 PO; -COU1T PO; +DOCU100C41 PO; -HYDR-3972 PO; -LOPE-144 PO; -MECL-111 PO; -MECL-127 PO; -NITR0.4T SL; -ONDA4TAB12 PO; -ONDA8TAB9 PO; +RANI300T4 PO
[2019-01-05 11:34] LABS: BASOPHILS % (AUTO) 0.1 % (0-1); EOSINOPHILS % (AUTO) 0 % (0-6); HEMATOCRIT 40.8 % (42.0-52.0); HEMOGLOBIN 13.7 g/dl (14.0-17.9); LYMPHOCYTES # (AUTO) 0.9 X10'3 (1.1-4.8); LYMPHOCYTES % (AUTO) 7.6 % (21-51); MEAN CORPUSCULAR HEMOGLOBIN 30.3 PG (27.0-31.0); MEAN CORPUSCULAR HGB CONC 33.6 g/dL (33.0-36.5); MEAN CORPUSCULAR VOLUME 90.2 FL (78-98); MEAN PLATELET VOLUME 7.3 FL (7.4-10.4); MONOCYTES # (AUTO) 1.5 X10'3 (0-0.9); MONOCYTES % (AUTO) 12.1 % (2-12); NEUTROPHILS # (AUTO) 9.7 X10'3 (1.8-7.7); NEUTROPHILS % (AUTO) 80.2 % (42-75); PLATELET COUNT 354 X10'3 (140-440); RED BLOOD COUNT 4.53 X10'6 (4.70-6.10); RED CELL DISTRIBUTION WIDTH 14.1 % (11.5-14.5); WHITE BLOOD COUNT 12.1 X10'3 (4.5-11.0)
[2019-01-05 11:51] LABS: ALANINE AMINOTRANSFERASE 29 U/L (12-78); ALBUMIN 2.2 G/DL (3.4-5.0); ALBUMIN/GLOBULIN RATIO 0.5 (1.1-1.5); ALKALINE PHOSPHATASE 52 IU/L (46-116); ANION GAP 11 (8-16); ASPARTATE AMINO TRANSFERASE 25 U/L (10-37); BILIRUBIN,TOTAL 0.5 MG/DL (0.1-1.0); BLOOD UREA NITROGEN 15 MG/DL (7-18); BUN/CREATININE RATIO 18.5 (5.4-32.0); CALCIUM 8.8 MG/DL (8.5-10.1); CHLORIDE 102 MMOL/L (99-107); CREATININE 0.81 MG/DL (0.60-1.10); GLUCOSE 128 MG/DL (70-104); POTASSIUM 3.9 MMOL/L (3.5-5.1); SODIUM 138 MMOL/L (135-145); TOTAL CARBON DIOXIDE 24.8 MMOL/L (24-32); TOTAL PROTEIN 6.9 G/DL (6.4-8.2); eGFR > 90 ML/MIN
[2019-01-05 11:52] LABS: PARTIAL THROMBOPLASTIN TIME 39 SECONDS (22-32)
[2019-01-05] MEDS ORDERED: ipratropium/albuterol 3ml nebule NEB ONE (13:55)
[2019-01-05] MEDS ORDERED: azithromycin/NS 500mg/250ml 250 ML IV ONE (14:00)
[2019-01-05] MEDS ORDERED: cefepime 2g/NS 100ml ADVANTAGE 100 ML IV SCH (14:00)
[2019-01-05] MEDS ORDERED: normal saline 1000ML IV soln IV ONE (14:05)
[2019-01-05] MEDS ORDERED: cefepime 2g/NS 100ml ADVANTAGE 100 ML IV ONE (14:06)
[2019-01-05 14:26] LABS: ABG BASE EXCESS -0.8 mmol/L (-2.0-3.0); ABG HCO3 20.8 mmol/L (22.0-26.0); ABG OXYGEN SATURATION 96.6 % (95-98); ABG PCO2 (T) 26.6 mmHg (35.0-45.0); ABG PO2 (T) 82.4 mmHg (83-108); FCOHb 0.4 % (0.5-1.5); FMetHb 0.2 % (0.3-1.12); RESPIRATORY RATE (OBSERVED) 38 b/min; TOTAL HEMOGLOBIN 13.9 G/dl (14.0-17.9)
[2019-01-05] MEDS ORDERED: vancomycin/NS 1 GM ADD-VANTAGE 250 ML IV ONE (15:20)
[2019-01-05] MEDS ORDERED: MELA3TAB64 PO (15:36)
[2019-01-05] MEDS ORDERED: MAGN400O6 PO (15:36)
[2019-01-05] MEDS ORDERED: RIVA20TA PO (15:36)
[2019-01-05] MEDS ORDERED: CARV6.252 PO (15:36)
[2019-01-05] MEDS ORDERED: AMOX250S3 PO (15:36)
[2019-01-05] MEDS ORDERED: BISA10SU60 RC (15:36)
[2019-01-05] MEDS ORDERED: SUCR1ORA PO (15:36)
[2019-01-05] MEDS ORDERED: IPRA3AMP31 IH (15:36)
[2019-01-05] MEDS ORDERED: DOCU50LI13 PO (15:36)
[2019-01-05] MEDS ORDERED: MULT-933 PO (15:36)
[2019-01-05] MEDS ORDERED: BUTA-281 PO (15:36)
[2019-01-05] MEDS ORDERED: ESOM40CA49 PO (15:36)
[2019-01-05] MEDS ORDERED: LEVO500T2 PO (15:36)
[2019-01-05 16:30] LABS: ABG BASE EXCESS -2.2 mmol/L (-2.0-3.0); ABG HCO3 19.8 mmol/L (22.0-26.0); ABG OXYGEN SATURATION 97.6 % (95-98); ABG PCO2 (T) 26.4 mmHg (35.0-45.0); ABG PH (T) 7.492 (7.350-7.450); ABG PO2 (T) 96.3 mmHg (83-108); ALLEN'S TEST Positive; FCOHb 0.4 % (0.5-1.5); FMetHb 0.2 % (0.3-1.12); RESPIRATORY RATE (OBSERVED) 33 b/min; TOTAL HEMOGLOBIN 12.7 G/dl (14.0-17.9)
[2019-01-05] MEDS ORDERED: magnesium hydroxide 30ml (MOM) UD suspension PO PRN ×2 (16:40→17:30)
[2019-01-05] MEDS ORDERED: Melatonin 3mg tablet PO PRN (16:40)
[2019-01-05] MEDS ORDERED: acetaminophen 325mg tablet PO PRN ×2 (16:40→17:30)
[2019-01-05] MEDS ORDERED: acetaminophen 650mg rectal suppository RC PRN (17:30)
[2019-01-05] MEDS ORDERED: magnesium 4gm in 100ml NS 100 ML IV PRN (17:30)
[2019-01-05] MEDS ORDERED: metoclopramide 5 mg/ml inj IV PRN (17:30)
[2019-01-05] MEDS ORDERED: magnesium Cl slow-release 64mg tablet PO PRN (17:30)
[2019-01-05] MEDS ORDERED: potassium Cl 20 mEq SR tablet PO PRN ×2 (17:30)
[2019-01-05] MEDS ORDERED: ondansetron/PF 4mg/2ml inj IV PRN (17:30)
[2019-01-05] MEDS ORDERED: diphenhydrAMINE 50 mg/ml inj IV PRN (17:30)
[2019-01-05] MEDS ORDERED: bisacodyl 10mg suppository rectal RC PRN (17:30)
[2019-01-05] MEDS ORDERED: potassium CL 10mEq/100ml bag 100 ML IV PRN ×2 (17:30)
[2019-01-05] MEDS ORDERED: morphine 2 MG/ML inj. syringe IV PRN (17:30)
[2019-01-05] MEDS ORDERED: magnesium 2GM in 50ml NS 50 ML IV PRN (17:30)
[2019-01-05] MEDS ORDERED: mag hydrox/Alum hydrox/simeth 30ml oral suspension PO PRN (17:30)
[2019-01-05] MEDS ORDERED: diphenhydrAMINE 25mg capsule PO PRN (17:30)
[2019-01-05] MEDS: piperacillin/tazo 3.375gm/50ml 50 ML IV SCH (17:57)
[2019-01-05] MEDS: normal saline 1000ml 1,000 ML IV SCH (17:57)
[2019-01-05] MEDS: sucralfate 1gm/10ml UD suspension PO SCH ×2 (17:57→22:27)
[2019-01-05] MEDS: K and/or MAG REPLACEMENT MC SCH (17:58)
--- NOTE | 2019-01-05 18:48 | NUR ---
report called from ER by José Miguel CAMPBELL. Awaiting pt arrival to floor
--- NOTE | 2019-01-05 19:22 | NUR ---
pt arrived to unit via gurney, placed in bed, vitals taken. antibiotics infusing per MD order from ER still. will continue to monitor
[2019-01-05 20:00] VITALS: BP 155/94
[2019-01-05] MEDS: benzonatate 100mg capsule PO SCH (20:00)
[2019-01-05] MEDS ORDERED: heparin, porcine 5000 units/ml vial SQ SCH (20:00)
[2019-01-05] MEDS ORDERED: atorvastatin 20mg tablet PO SCH (21:00)
[2019-01-05] MEDS ORDERED: famotidine 20mg tablet PO SCH (21:00)
--- NOTE | 2019-01-05 22:00 | NUR ---
MD okayed to give medications through patient's PEG tube r/t NPO and awaiting speech eval
[2019-01-05] MEDS: docusate sodium 100mg/10ml UD cup PO SCH (22:15)
[2019-01-05] MEDS: topiramate 100mg tablet PO SCH (22:16)
[2019-01-05] MEDS: carvedilol 6.25mg tablet PO SCH (22:17)
[2019-01-05] MEDS: vancomycin/NS 1 GM ADD-VANTAGE 250 ML IV SCH (23:05)
[2019-01-06] VITALS: BP 152/70
[2019-01-06] MEDS: piperacillin/tazo 3.375gm/50ml 50 ML IV SCH ×3 (01:00→15:23)
[2019-01-06] MEDS: normal saline 1000ml 1,000 ML IV SCH ×3 (03:29→20:10)
[2019-01-06 05:59] LABS: BASOPHILS % (AUTO) 0.1 % (0-1); EOSINOPHILS % (AUTO) 0 % (0-6); HEMATOCRIT 34.1 % (42.0-52.0); HEMOGLOBIN 11.5 g/dl (14.0-17.9); LYMPHOCYTES # (AUTO) 1.1 X10'3 (1.1-4.8); LYMPHOCYTES % (AUTO) 8.5 % (21-51); MEAN CORPUSCULAR HEMOGLOBIN 30.4 PG (27.0-31.0); MEAN CORPUSCULAR HGB CONC 33.7 g/dL (33.0-36.5); MEAN CORPUSCULAR VOLUME 90.4 FL (78-98); MEAN PLATELET VOLUME 7.8 FL (7.4-10.4); MONOCYTES # (AUTO) 1.5 X10'3 (0-0.9); MONOCYTES % (AUTO) 11.3 % (2-12); NEUTROPHILS # (AUTO) 10.3 X10'3 (1.8-7.7); NEUTROPHILS % (AUTO) 80.1 % (42-75); PLATELET COUNT 297 X10'3 (140-440); RED BLOOD COUNT 3.77 X10'6 (4.70-6.10); RED CELL DISTRIBUTION WIDTH 14.1 % (11.5-14.5); WHITE BLOOD COUNT 12.9 X10'3 (4.5-11.0)
[2019-01-06 06:08] LABS: ALBUMIN 1.7 G/DL (3.4-5.0); ALBUMIN/GLOBULIN RATIO 0.4 (1.1-1.5); ANION GAP 11 (8-16); ASPARTATE AMINO TRANSFERASE 22 U/L (10-37); BILIRUBIN,TOTAL 0.8 MG/DL (0.1-1.0); BLOOD UREA NITROGEN 14 MG/DL (7-18); BUN/CREATININE RATIO 18.4 (5.4-32.0); CALCIUM 8.2 MG/DL (8.5-10.1); CHLORIDE 107 MMOL/L (99-107); CREATININE 0.76 MG/DL (0.60-1.10); GLUCOSE 116 MG/DL (70-104); PHOSPHORUS 3.1 MG/DL (2.3-4.5); POTASSIUM 3.5 MMOL/L (3.5-5.1); SODIUM 140 MMOL/L (135-145); TOTAL CARBON DIOXIDE 21.6 MMOL/L (24-32); TOTAL PROTEIN 5.8 G/DL (6.4-8.2); eGFR > 90 ML/MIN
[2019-01-06 06:09] LABS: ALANINE AMINOTRANSFERASE 23 U/L (12-78); ALKALINE PHOSPHATASE 46 IU/L (46-116)
--- NOTE | 2019-01-06 06:41 | NUR ---
Patient in room [facility] 355. I have received report from ADRIAN BLISS and had the opportunity to ask questions and assume patient care.
--- NOTE | 2019-01-06 06:42 | NUR ---
Problems reprioritized. Patient report given, questions answered & plan of care reviewed with ADRIAN Newton.
[2019-01-06 07:00] VITALS: BP 130/78
[2019-01-06] MEDS: ipratropium/albuterol 3ml nebule IH PRN (07:55)
[2019-01-06] MEDS ORDERED: pantoprazole 40mg Tablet.DR PO SCH (08:00)
[2019-01-06] MEDS: K and/or MAG REPLACEMENT MC SCH (08:00)
[2019-01-06] MEDS ORDERED: multivitamins, therapeutics tablet PO SCH (08:00)
[2019-01-06] MEDS ORDERED: clopidogrel 75mg tablet PO SCH (08:00)
[2019-01-06] MEDS ORDERED: meclizine 12.5mg tablet PO SCH (08:00)
[2019-01-06] MEDS: benzonatate 100mg capsule PO SCH ×2 (08:00→20:00)
[2019-01-06] MEDS ORDERED: aspirin 81mg tab.chew PO SCH (08:00)
[2019-01-06] MEDS ORDERED: rivaroxaban 20mg tablet PO SCH (08:00)
[2019-01-06] MEDS: docusate sodium 100mg/10ml UD cup PO SCH (08:04)
[2019-01-06] MEDS: carvedilol 6.25mg tablet PO SCH (08:04)
[2019-01-06] MEDS: sucralfate 1gm/10ml UD suspension PO SCH ×2 (08:04→12:31)
[2019-01-06] MEDS: morphine 2 MG/ML inj. syringe IV PRN ×2 (08:06→15:33)
[2019-01-06] MEDS: topiramate 100mg tablet PO SCH (08:13)
--- NOTE | 2019-01-06 10:55 | NUR ---
Malnutrition consult: Pt with unreliable wt hx as most documented weights are pt stated with most recent scaled wt being 66.5 kg taken November 2017 using chair scale. Current documented wt is 70.45 kg which is pt stated although per ED report pt is non-verbal and pt with documented wt of 56.36 kg at last visit 12/26/18 although that wt was also pt stated. Pt also documented as A/O x 2 with expressive aphasia. Pt recently admitted earlier this month where SO reports patient's UBW is 165 lbs ([address] kg[address] noted that pt with mild visible fat and muscle wasting. Pt with severe weakness this visit. Pt currently meets criteria for malnutrition, MD notified. Pending H&P, per ED report pt BIB [place] with c/o SOB and suspected stroke d/t pt not being able to talk much over the last couple of weeks. Pt with recent PEG placement and was supposed to start speech therapy the morning of admit however pt was very somnolent per ED report. Pt s/p BSS this morning with ST recs NPO with nutrition via PEG d/t pt aspirating with food and liquids. Pt currently NPO, no consult to start TF at this time. Recs below for if pt to start tube feed via PEG. Malnutrition education not appropriate at this time as ONS not appropriate given NPO status. LBM 01/06. Will continue to follow. Recommendations: 1) PO diet advancement to heart healthy per ST recs IF safe PO 2) If TF via PEG, continuous TF using Jevity 1.2 with goal rate of 65 mL/hr to provide: 1650 mL total volume/day, 1872 kcal, 87 g protein, 1259 mL water 3) If TF, 150 mL water flush Q6H 4) If TF, prealbumin q /; daily weights Addendum: 01/06/19 at [address] Amended: Links added.
[2019-01-06] MEDS: vancomycin/NS 1 GM ADD-VANTAGE 250 ML IV SCH ×2 (11:38→22:54)
[2019-01-06 12:11] VITALS: BP 129/75
--- NOTE | 2019-01-06 12:52 | NUR ---
Dr. Dobbins in to see patient. Patient's and daughter at bedside.
--- NOTE | 2019-01-06 14:35 | NUR ---
TF consult: Per consult MD would like a rate less than 60 mL/hr which was patient's goal rate at previous admit. TwoCal HN with goal rate of 40 mL/hr will meet 100% of patient's estimated nutrient needs, see below. Will continue to follow. Recommendations: 1) PO diet advancement to heart healthy per ST recs IF safe PO 2) Continuous TF via PEG using TwoCal HN to begin at 20 mL/hr and advance by 20 mL/hr Q8H to goal rate of 40 mL/hr to provide: 960 mL total volume/day, 1920 kcal, 80 g protein, 672 mL water 3) 200 mL water flush Q4H 4) Prealbumin q /; daily weights Addendum: 01/06/19 at [address] Amended: Links added.
[2019-01-06] MEDS ORDERED: acetaminophen 325mg tablet PEG PRN ×2 (15:17)
[2019-01-06] MEDS ORDERED: mag hydrox/Alum hydrox/simeth 30ml oral suspension PEG PRN (15:20)
[2019-01-06] MEDS ORDERED: diphenhydrAMINE 25 MG/10 ML UD oral solution PEG PRN (15:20)
[2019-01-06] MEDS ORDERED: magnesium hydroxide 30ml (MOM) UD suspension PEG PRN (15:21)
[2019-01-06] MEDS ORDERED: POTASSIUM BICARB 20meq eff tab 20 MEQ TABLET.EFF PEG PRN (15:30)
--- NOTE | 2019-01-06 18:17 | NUR ---
patient down to CT
--- NOTE | 2019-01-06 18:20 | NUR ---
Problems reprioritized. Patient report given, questions answered & plan of care reviewed with PAVEL Jefferson RN
--- NOTE | 2019-01-06 18:28 | NUR ---
Patient in room [facility] 355. I have received report from ADRIAN Kay and had the opportunity to ask questions and assume patient care. Addendum: 01/06/19 at 1828 by Kecia Harris RN Amended: Links added.
[2019-01-06] MEDS: sucralfate 1gm/10ml UD suspension PEG SCH ×2 (18:43→20:33)
[2019-01-06 20:00] VITALS: BP 117/73
--- NOTE | 2019-01-06 20:19 | NUR ---
coughed up thick acosta sputum. kerry n/v. Addendum: 01/06/19 at 2020 by Steven Sanchez RN Amended: Links added.
[2019-01-06] MEDS: docusate sodium 100mg/10ml UD cup PEG SCH (20:33)
[2019-01-06] MEDS: lactobacillus rhamnosus 10,000 MMU CELLS/CAPSULE PEG SCH (20:33)
[2019-01-06] MEDS: famotidine 20mg tablet PEG SCH (20:33)
[2019-01-06] MEDS: carvedilol 6.25mg tablet PEG SCH (20:34)
[2019-01-06] MEDS: atorvastatin 20mg tablet PEG SCH (20:34)
[2019-01-06] MEDS: topiramate 100mg tablet PEG SCH (20:34)
[2019-01-07] VITALS: BP 130/80
[2019-01-07] MEDS: piperacillin/tazo 3.375gm/50ml 50 ML IV SCH ×3 (00:22→16:19)
[2019-01-07] MEDS: normal saline 1000ml 1,000 ML IV SCH (05:03)
[2019-01-07 05:46] LABS: BASOPHILS % (AUTO) 0.3 % (0-1); EOSINOPHILS # (AUTO) 0.1 X10'3 (0-0.9); EOSINOPHILS % (AUTO) 0.9 % (0-6); HEMATOCRIT 32.9 % (42.0-52.0); HEMOGLOBIN 11.1 g/dl (14.0-17.9); LYMPHOCYTES # (AUTO) 1.2 X10'3 (1.1-4.8); LYMPHOCYTES % (AUTO) 15.5 % (21-51); MEAN CORPUSCULAR HEMOGLOBIN 30.5 PG (27.0-31.0); MEAN CORPUSCULAR HGB CONC 33.8 g/dL (33.0-36.5); MEAN CORPUSCULAR VOLUME 90.2 FL (78-98); MEAN PLATELET VOLUME 7.5 FL (7.4-10.4); MONOCYTES % (AUTO) 12.5 % (2-12); NEUTROPHILS # (AUTO) 5.7 X10'3 (1.8-7.7); NEUTROPHILS % (AUTO) 70.8 % (42-75); PLATELET COUNT 306 X10'3 (140-440); RED BLOOD COUNT 3.65 X10'6 (4.70-6.10); RED CELL DISTRIBUTION WIDTH 14.1 % (11.5-14.5)
[2019-01-07 06:07] LABS: ALANINE AMINOTRANSFERASE 33 U/L (12-78); ALBUMIN 1.6 G/DL (3.4-5.0); ALBUMIN/GLOBULIN RATIO 0.4 (1.1-1.5); ALKALINE PHOSPHATASE 52 IU/L (46-116); ANION GAP 9 (8-16); ASPARTATE AMINO TRANSFERASE 44 U/L (10-37); BILIRUBIN,TOTAL 0.5 MG/DL (0.1-1.0); BLOOD UREA NITROGEN 16 MG/DL (7-18); BUN/CREATININE RATIO 20.3 (5.4-32.0); CALCIUM 7.6 MG/DL (8.5-10.1); CHLORIDE 109 MMOL/L (99-107); CREATININE 0.79 MG/DL (0.60-1.10); GLUCOSE 113 MG/DL (70-104); PHOSPHORUS 2.1 MG/DL (2.3-4.5); POTASSIUM 3.1 MMOL/L (3.5-5.1); PREALBUMIN 6.7 MG/DL (19-36); SODIUM 140 MMOL/L (135-145); TOTAL CARBON DIOXIDE 22.2 MMOL/L (24-32); TOTAL PROTEIN 5.7 G/DL (6.4-8.2); eGFR > 90 ML/MIN
--- NOTE | 2019-01-07 06:39 | NUR ---
Problems reprioritized. Patient report given, questions answered & plan of care reviewed with ADRIAN Nunez.
[2019-01-07 07:00] VITALS: BP 150/88
[2019-01-07] MEDS: K and/or MAG REPLACEMENT MC SCH (08:00)
[2019-01-07] MEDS: lactobacillus rhamnosus 10,000 MMU CELLS/CAPSULE PEG SCH ×2 (08:00→20:19)
[2019-01-07] MEDS: benzonatate 100mg capsule PO SCH (08:00)
--- NOTE | 2019-01-07 08:16 | NUR ---
PAGER ID: [phone] MESSAGE: Orestes Berger [id number] Pt. lungs crackles to apex, SA02 around 90% on 3 LPM. 100ml/hr NS running all night. Continue? Needs phos. replacement: 2.1 CA 7.6 Liver enzymes doubled. ALT 33 AST 44 ASE of medication? Mayra [id number]
[2019-01-07] MEDS: sucralfate 1gm/10ml UD suspension PEG SCH ×4 (09:50→20:18)
[2019-01-07] MEDS: meclizine 12.5mg tablet PEG SCH (09:51)
[2019-01-07] MEDS: rivaroxaban 20mg tablet PEG SCH (09:52)
[2019-01-07] MEDS: aspirin 81mg tab.chew PEG SCH (09:52)
[2019-01-07] MEDS: docusate sodium 100mg/10ml UD cup PEG SCH ×2 (09:52→20:18)
[2019-01-07] MEDS: topiramate 100mg tablet PEG SCH ×2 (09:53→20:19)
[2019-01-07] MEDS: carvedilol 6.25mg tablet PEG SCH ×2 (09:53→20:19)
[2019-01-07] MEDS: clopidogrel 75mg tablet PEG SCH (09:54)
[2019-01-07] MEDS: POTASSIUM BICARB 20meq eff tab 20 MEQ TABLET.EFF PEG PRN ×3 (09:54→20:18)
[2019-01-07] MEDS: lansoprazole 15mg solutab PEG SCH (09:54)
[2019-01-07] MEDS: ipratropium/albuterol 3ml nebule IH PRN (10:16)
[2019-01-07] MEDS ORDERED: VANCOMYCIN LEVEL IV ONE (10:30)
[2019-01-07] MEDS: vancomycin/NS 1 GM ADD-VANTAGE 250 ML IV SCH ×2 (11:21→23:02)
[2019-01-07 12:00] VITALS: BP 150/92
--- NOTE | 2019-01-07 12:11 | NUR ---
MD AWARE OF PHOSPHORUS LEVEL AND CALCIUM LEVEL. NO NEW ORDERS AT THIS TIME.
[2019-01-07] MEDS ORDERED: potassium phosphate inj 30 MMOL in normal saline 500ml IV soln 490 ML IV ONE (12:50)
[2019-01-07 18:00] VITALS: BP 142/83
--- NOTE | 2019-01-07 18:27 | NUR ---
Problems reporitization. Patient report given, questions answered & plan of care reviewed with Nicky CAMPBELL. oritized. Patient report given, questions answered & plan of care reviewed with Nicky CAMPBELL.
--- NOTE | 2019-01-07 18:35 | NUR ---
Patient in room [facility] 355. I have received report from ADRIAN Nunez and had the opportunity to ask questions and assume patient care. Addendum: 01/07/19 at 1835 by Kecia Harris RN Amended: Links added.
[2019-01-07] MEDS: atorvastatin 20mg tablet PEG SCH (20:19)
[2019-01-07] MEDS: famotidine 20mg tablet PEG SCH (20:19)
[2019-01-08] VITALS: BP 145/86
[2019-01-08] MEDS: piperacillin/tazo 3.375gm/50ml 50 ML IV SCH ×2 (00:50→09:24)
[2019-01-08 05:16] LABS: ALANINE AMINOTRANSFERASE 42 U/L (12-78); ALBUMIN 1.5 G/DL (3.4-5.0); ALBUMIN/GLOBULIN RATIO 0.4 (1.1-1.5); ALKALINE PHOSPHATASE 46 IU/L (46-116); ANION GAP 9 (8-16); ASPARTATE AMINO TRANSFERASE 53 U/L (10-37); BILIRUBIN,TOTAL 0.3 MG/DL (0.1-1.0); BLOOD UREA NITROGEN 14 MG/DL (7-18); BUN/CREATININE RATIO 18.9 (5.4-32.0); CALCIUM 7.5 MG/DL (8.5-10.1); CHLORIDE 110 MMOL/L (99-107); CREATININE 0.74 MG/DL (0.60-1.10); GLUCOSE 124 MG/DL (70-104); PHOSPHORUS 2.5 MG/DL (2.3-4.5); POTASSIUM 3.7 MMOL/L (3.5-5.1); SODIUM 141 MMOL/L (135-145); TOTAL PROTEIN 5.7 G/DL (6.4-8.2); eGFR > 90 ML/MIN
[2019-01-08 05:17] LABS: BASOPHILS % (AUTO) 0.5 % (0-1); EOSINOPHILS # (AUTO) 0.2 X10'3 (0-0.9); EOSINOPHILS % (AUTO) 2.6 % (0-6); HEMATOCRIT 30.4 % (42.0-52.0); HEMOGLOBIN 10.6 g/dl (14.0-17.9); LYMPHOCYTES # (AUTO) 1.3 X10'3 (1.1-4.8); LYMPHOCYTES % (AUTO) 18.3 % (21-51); MEAN CORPUSCULAR HEMOGLOBIN 31.3 PG (27.0-31.0); MEAN CORPUSCULAR HGB CONC 34.9 g/dL (33.0-36.5); MEAN CORPUSCULAR VOLUME 89.9 FL (78-98); MEAN PLATELET VOLUME 7.2 FL (7.4-10.4); MONOCYTES # (AUTO) 0.9 X10'3 (0-0.9); MONOCYTES % (AUTO) 12.9 % (2-12); NEUTROPHILS # (AUTO) 4.6 X10'3 (1.8-7.7); NEUTROPHILS % (AUTO) 65.7 % (42-75); PLATELET COUNT 330 X10'3 (140-440); RED BLOOD COUNT 3.38 X10'6 (4.70-6.10); RED CELL DISTRIBUTION WIDTH 14.2 % (11.5-14.5)
--- NOTE | 2019-01-08 06:30 | NUR ---
Problems reprioritized. Patient report given, questions answered & plan of care reviewed with ADRIAN Nunez.
[2019-01-08 07:01] VITALS: BP 115/63
[2019-01-08] MEDS: K and/or MAG REPLACEMENT MC SCH (08:00)
[2019-01-08] MEDS: docusate sodium 100mg/10ml UD cup PEG SCH (09:16)
[2019-01-08] MEDS: carvedilol 6.25mg tablet PEG SCH (09:17)
[2019-01-08] MEDS: meclizine 12.5mg tablet PEG SCH (09:17)
[2019-01-08] MEDS: sucralfate 1gm/10ml UD suspension PEG SCH ×2 (09:17→12:06)
[2019-01-08] MEDS: rivaroxaban 20mg tablet PEG SCH (09:17)
[2019-01-08] MEDS: clopidogrel 75mg tablet PEG SCH (09:17)
[2019-01-08] MEDS: lactobacillus rhamnosus 10,000 MMU CELLS/CAPSULE PEG SCH (09:18)
[2019-01-08] MEDS: topiramate 100mg tablet PEG SCH (09:18)
[2019-01-08] MEDS: aspirin 81mg tab.chew PEG SCH (09:18)
[2019-01-08] MEDS: lansoprazole 15mg solutab PEG SCH (09:24)
[2019-01-08] MEDS: ipratropium/albuterol 3ml nebule IH PRN (10:04)
[2019-01-08] MEDS: vancomycin/NS 1 GM ADD-VANTAGE 250 ML IV SCH (12:06)
--- NOTE | 2019-01-08 14:00 | NUR ---
Pt. transferred to [facility]. IVs DC'd, pressure bandage applied, no s/sx bleeding noted. Small ST to LFA, bandage applied. Charge nurse made aware. Condom cath. secure. Bag emptied. Tele removed, cleaned, returned. Report called into [facility]. aware of transfer.
== END 2019-01-08 14:55 | DRG 177 ==
LOC: ER 10:45 → SUR 3N 19:16 → CMPBEDREQ 19:27
PROVIDERS: ADMIT Family Medicine; ATTEND Family Medicine
PROC: 5A09357 Assistance with Respiratory Ventilation, Less than 24 Consecutive Hours, Continuous Positive Airway Pressure (ICD-10-PCS; principal; 2019-01-05)
PROC: BW281ZZ Computerized Tomography (CT Scan) of Head using Low Osmolar Contrast (ICD-10-PCS; 2019-01-06)
DX: J69.0 Pneumonitis due to inhalation of food and vomit (principal); E43 Unspecified severe protein-calorie malnutrition; R65.11 Systemic inflammatory response syndrome (SIRS) of non-infectious origin with acute organ dysfunction; J96.91 Respiratory failure, unspecified with hypoxia; Z93.1 Gastrostomy status; Z74.01 Bed confinement status; E78.00 Pure hypercholesterolemia, unspecified; E78.5 Hyperlipidemia, unspecified; G40.909 Epilepsy, unspecified, not intractable, without status epilepticus; G89.29 Other chronic pain; M54.9 Dorsalgia, unspecified; I10 Essential (primary) hypertension; I25.10 Atherosclerotic heart disease of native coronary artery without angina pectoris; I67.1 Cerebral aneurysm, nonruptured; I48.91 Unspecified atrial fibrillation; R13.10 Dysphagia, unspecified; Z51.5 Encounter for palliative care; Z66 Do not resuscitate; Z79.01 Long term (current) use of anticoagulants; I25.2 Old myocardial infarction; Z86.19 Personal history of other infectious and parasitic diseases; Z87.442 Personal history of urinary calculi; Z68.23 Body mass index [BMI] 23.0-23.9, adult; Z88.5 Allergy status to narcotic agent; Z82.49 Family history of ischemic heart disease and other diseases of the circulatory system; Z79.82 Long term (current) use of aspirin; I69.398 Other sequelae of cerebral infarction
CPT/HCPCS: 36415; 36600; 70450; 70460; 71045; 80053; 80202; 82803; 82948; 83605; 83735; 84100; 84134; 84145; 85018; 85025; 85610; 85730; 87040; 87081; 92508; 92616; 93005; 94640; 94660; 94760; 96365; 96366; 96368; 97110; 97116; 97162; 99285; G0378; J0456; J0692; J2270; J2543; J3370; J7030; J7040; J8597